=== PATIENT | female | born 1965 | race Caucasian/White ===

== ENCOUNTER → 2021-04-05 | Outpatient (CLI) | payer BC ==
--- NOTE | 2021-04-05 10:02 | RAD ---
Left lower extremity venous ultrasound, : History: Left lower extremity calf pain Duplex evaluation including grayscale, color flow and spectral Doppler analysis was performed. The femoral and popliteal veins show no filling defects to suggest DVT. The visualized calf veins are u nremarkable. IMPRESSION: There is no sonographic evidence of deep vein thrombosis in the left lower extremity Electronically signed by: Damian Sims MD (04/05/2021 10:00 AM) [facility]
== END ==
LOC: US 09:24
PROVIDERS: ATTEND Family Medicine
DX: M79.662 Pain in left lower leg (principal); Z78.9 Other specified health status
CPT/HCPCS: 93971